=== PATIENT | male | born 1975 | race Caucasian/White ===

== ENCOUNTER → 2018-03-27 | Outpatient (CLI) | payer BC ==
[2014-12-08 21:32] VITALS: BP 122/76
[~2018-03-27] MED LIST: AMOXICILLIN 50500 MG PO; ASPIRIN 32325 MG/TA1 PO; MULTI VITAMINS1 TAB PO; NORCO 325 MG-51 TAB PO; SIMVASTATIN20 MG PO
== END ==
LOC: LAB 09:58
DX: Z02.4 Encounter for examination for driving license (principal); E11.8 Type 2 diabetes mellitus with unspecified complications; I10 Essential (primary) hypertension

== ENCOUNTER → 2018-06-19 | Outpatient (CLI) | payer BC ==
[2014-12-08 21:32] VITALS: BP 122/76
== END ==
LOC: LAB 10:28
DX: E11.9 Type 2 diabetes mellitus without complications (principal); E78.2 Mixed hyperlipidemia

== ENCOUNTER → 2018-09-08 | Outpatient (CLI) | payer BC ==
[2014-12-08 21:32] VITALS: BP 122/76
== END ==
LOC: LAB 09:46
DX: E11.65 Type 2 diabetes mellitus with hyperglycemia (principal)

== ENCOUNTER → 2019-03-12 | Outpatient (CLI) | payer BC ==
[2014-12-08 21:32] VITALS: BP 122/76
[2019-03-12 12:17] LABS: HEMATOCRIT 46.8 % (42.0-52.0); HEMOGLOBIN 15.9 g/dL (13.5-18.0); MEAN PLATELET VOLUME 9.6 fl (7.4-10.4); RED BLOOD COUNT 5.23 M/mm3 (4.20-5.60); RED CELL DISTRIBUTION WIDTH 12.7 % (11.5-14.5); WHITE BLOOD COUNT 8.6 K/mm3 (4.8-10.8)
== END ==
LOC: LAB 12:05
PROVIDERS: Family Medicine
DX: N50.9 Disorder of male genital organs, unspecified (principal); E11.9 Type 2 diabetes mellitus without complications; I10 Essential (primary) hypertension; N52.9 Male erectile dysfunction, unspecified

== ENCOUNTER 2019-09-08 09:45 | Emergency (ER) | payer BC ==
[~2019-09-08] VITALS: Ht 180.3 cm; Wt 131.4 kg
[2019-09-08] MEDS ORDERED: PRINIVIL5 M1 PO (09:53)
[2019-09-08] MEDS ORDERED: METFORMIN HYD1000 MG PO (09:53)
[2019-09-08] MEDS ORDERED: GLIMEPIRIDE2 M1 PO (09:53)
[2019-09-08 10:20] LABS: HEMATOCRIT 45.8 % (42.0-52.0); HEMOGLOBIN 16.1 g/dL (13.5-18.0); MEAN CELL VOLUME 88 fl (78-100); MEAN CORPUSCULAR HEMOGLOBIN 31 pg (27-31); MEAN CORPUSCULAR HGB CONC 35 g/dL (33-37); MEAN PLATELET VOLUME 9.6 fl (7.4-10.4); PLATELET COUNT 193 K/mm3 (130-400); RED BLOOD COUNT 5.23 M/mm3 (4.20-5.60); RED CELL DISTRIBUTION WIDTH 12.8 % (11.5-14.5); WHITE BLOOD COUNT 7.2 K/mm3 (4.8-10.8)
[2019-09-08 10:29] LABS: ALBUMIN 4.1 g/dL (3.5-5.0); POTASSIUM 4.3 mmol/L (3.5-5.1)
[2019-09-08 10:31] LABS: CALCIUM 9.3 mg/dL (8.3-10.5)
[2019-09-08 10:32] LABS: TOTAL PROTEIN 7.1 g/dL (6.4-8.3)
[2019-09-08 10:34] LABS: TOTAL BILIRUBIN 0.7 mg/dL (0.2-1.2)
[2019-09-08 10:37] LABS: BAND 7 % (0-10); NEUTROPHILS 86 % (42-75)
[2019-09-08 10:38] LABS: LYMPHOCYTE 3 % (20-51); MONOCYTE 3 % (3-10)
[2019-09-08] MEDS ORDERED: ZOFRAN ODT4 MG PO (12:23)
[2019-09-08] MEDS ORDERED: NORCO 325 MG-51 TA1 PO (12:23)
[2019-09-08 13:11] VITALS: BP 131/82
== END 2019-09-08 12:37 | disposition home or self-care (01) ==
LOC: ED 09:45
PROVIDERS: Family Medicine
DX: A08.4 Viral intestinal infection, unspecified (principal); R94.5 Abnormal results of liver function studies; E11.9 Type 2 diabetes mellitus without complications; Z79.84 Long term (current) use of oral hypoglycemic drugs; Z90.49 Acquired absence of other specified parts of digestive tract
CPT/HCPCS: J2405; J3010; J7030

== ENCOUNTER → 2020-03-25 | Outpatient (CLI) | payer BC ==
[~2020-03-25] MED LIST changes: +GLIMEPIRIDE2 M1 PO; +METFORMIN HYD1000 MG PO; +NORCO 325 MG-51 TA1 PO; +PRINIVIL5 M1 PO; +ZOFRAN ODT4 MG PO
[2020-03-25 09:33] LABS: ALBUMIN 4.4 g/dL (3.5-5.0); POTASSIUM 4.3 mmol/L (3.5-5.1)
[2020-03-25 09:34] LABS: CALCIUM 9.9 mg/dL (8.3-10.5)
[2020-03-25 09:37] LABS: TOTAL BILIRUBIN 0.4 mg/dL (0.2-1.2)
== END ==
LOC: LAB 09:14
PROVIDERS: Family Medicine
DX: Z00.00 Encounter for general adult medical examination without abnormal findings (principal); E11.9 Type 2 diabetes mellitus without complications; I10 Essential (primary) hypertension

== ENCOUNTER → 2020-05-05 | Outpatient (CLI) | payer BC ==
[2020-05-05 09:16] LABS: ALBUMIN 4.3 g/dL (3.5-5.0)
[2020-05-05 09:19] LABS: TOTAL PROTEIN 7.5 g/dL (6.4-8.3)
[2020-05-05 09:21] LABS: TOTAL BILIRUBIN 0.6 mg/dL (0.2-1.2)
[2020-05-05 09:24] LABS: DIRECT BILIRUBIN 0.3 mg/dL (0.0-0.5)
== END ==
LOC: LAB 08:55
PROVIDERS: Family Medicine
DX: E11.9 Type 2 diabetes mellitus without complications (principal)

== ENCOUNTER → 2020-06-16 | Outpatient (CLI) | payer BC ==
[2020-06-16 14:12] LABS: ALBUMIN 4.2 g/dL (3.5-5.0)
[2020-06-16 14:16] LABS: TOTAL BILIRUBIN 0.6 mg/dL (0.2-1.2)
[2020-06-16 14:21] LABS: DIRECT BILIRUBIN 0.2 mg/dL (0.0-0.5)
== END ==
LOC: LAB 09:26
PROVIDERS: Family Medicine
DX: E78.2 Mixed hyperlipidemia (principal)

== ENCOUNTER → 2021-03-16 | Outpatient (CLI) | payer BC ==
[2021-03-16 09:21] LABS: ALBUMIN 4.3 g/dL (3.5-5.0); POTASSIUM 4.3 mmol/L (3.5-5.1)
[2021-03-16 09:22] LABS: CALCIUM 10.2 mg/dL (8.3-10.5)
[2021-03-16 09:24] LABS: TOTAL PROTEIN 7.4 g/dL (6.4-8.3)
[2021-03-16 09:25] LABS: TOTAL BILIRUBIN 0.6 mg/dL (0.2-1.2)
== END ==
LOC: LAB 08:59
PROVIDERS: Family Medicine
DX: E11.9 Type 2 diabetes mellitus without complications (principal); E78.2 Mixed hyperlipidemia

== ENCOUNTER → 2021-09-21 | Outpatient (CLI) | payer BC | LOC: LAB 08:40 | DX: I10 Essential (primary) hypertension (principal); E78.2 Mixed hyperlipidemia; E11.9 Type 2 diabetes mellitus without complications; E66.9 Obesity, unspecified ==

== ENCOUNTER → 2022-03-24 | Outpatient (CLI) | payer BC ==
[2022-03-24 08:57] LABS: ALBUMIN 4.3 g/dL (3.5-5.0); POTASSIUM 4.4 mmol/L (3.5-5.1)
[2022-03-24 08:59] LABS: TOTAL PROTEIN 7.3 g/dL (6.4-8.3)
[2022-03-24 09:01] LABS: TOTAL BILIRUBIN 0.7 mg/dL (0.2-1.2)
== END ==
LOC: LAB 08:38
PROVIDERS: Family Medicine
DX: E11.9 Type 2 diabetes mellitus without complications (principal)

== ENCOUNTER → 2023-08-29 | Outpatient (CLI) | payer BC ==
[2023-08-29 09:00] LABS: CALCIUM 9.9 mg/dL (8.3-10.5)
== END ==
LOC: LAB 08:32
PROVIDERS: Family Medicine
DX: Z23 Encounter for immunization (principal); I10 Essential (primary) hypertension; E11.9 Type 2 diabetes mellitus without complications

== ENCOUNTER → 2023-11-30 | Outpatient (CLI) | payer BC | LOC: LAB 07:20 | DX: E11.9 Type 2 diabetes mellitus without complications (principal) ==

== ENCOUNTER → 2024-02-27 | Outpatient (CLI) | payer BC ==
[2024-02-27 08:41] LABS: ALBUMIN 4.1 g/dL (3.5-5.0)
[2024-02-27 08:43] LABS: TOTAL PROTEIN 6.5 g/dL (6.4-8.3)
[2024-02-27 08:45] LABS: TOTAL BILIRUBIN 0.8 mg/dL (0.2-1.2)
== END ==
LOC: LAB 08:22
PROVIDERS: Family Medicine
DX: Z23 Encounter for immunization (principal); E11.9 Type 2 diabetes mellitus without complications; I10 Essential (primary) hypertension; E78.2 Mixed hyperlipidemia

== ENCOUNTER → 2024-08-20 | Outpatient (CLI) | payer BC ==
[2024-08-20 08:39] LABS: CALCIUM 9.6 mg/dL (8.3-10.5)
== END ==
LOC: LAB 08:15
PROVIDERS: Family Medicine
DX: Z23 Encounter for immunization (principal); I10 Essential (primary) hypertension; E11.9 Type 2 diabetes mellitus without complications